=== PATIENT | female | born 1975 | race Hispanic/Latino ===

== ENCOUNTER 2017-11-08 09:19 | Day surgery (SDC) | payer SELFPAY ==
[~2017-11-08] VITALS: Ht 152.4 cm; Wt 76.4 kg
[~2017-11-08 09:19] MED LIST: FEOSOL325 MG PO; FOLIC ACID0.4 MG PO; LEVSIN-SL0.125 MG SL; PROVERA,CYCRIN10 MG PO; VITAMIN B-122500 MCG SL
[2017-11-08 10:20] VITALS: BP 141/82
[2017-11-08 11:02] VITALS: BP 187/78
[2017-11-08 16:30] VITALS: BP 123/74
[2017-11-08 21:17] VITALS: BP 142/85
[2017-11-09 00:56] VITALS: BP 122/71
[2017-11-09 04:54] VITALS: BP 129/72
[2017-11-09 07:06] LABS: BASOPHIL (%) 0.1 % (0-1); EOSINOPHIL (%) 0 % (0-5); HEMATOCRIT 41.1 % (36.0-46.0); HEMOGLOBIN 13.8 G/DL (11.9-15.5); IMMATURE GRANULOCYTE (%) 0.5 % (0.0-0.7); LYMPHOCYTE (%) 17.8 % (15-42); LYMPHOCYTE COUNT 2.6 K/uL (1.0-2.8); MCH 27.3 PG (29.0-34.0); MCHC 33.6 G/DL (30.0-36.0); MCV 81.2 FL (83-99); MONOCYTE (%) 6.4 % (3-12); MONOCYTE COUNT 0.9 K/uL (0-0.8); NEUTROPHIL (%) 75.2 % (45-76); NEUTROPHIL COUNT 10.8 K/uL (1.8-6.4); PLATELET COUNT 322 K/uL (156-360); RBC DIS.WIDTH-CV 14.1 % (11.8-14.6); RBC DIS.WIDTH-SD 41.6 % (39-53); RED BLOOD COUNT 5.06 M/uL (3.80-5.20); WHITE BLOOD COUNT 14.3 K/uL (4.1-10.2)
[2017-11-09 07:29] LABS: CHLORIDE 109 MEQ/L (99-109); CREATININE 0.6 MG/DL (0.6-1.3); GFR ESTIMATE (CALCULATED) > 59 mL/min/; GLUCOSE 103 mg/dL (70-99); POTASSIUM 3.9 MEQ/L (3.7-5.4); SODIUM 140 MEQ/L (136-147); UREA NITROGEN (BUN) 7 mg/dL (9-23)
[2017-11-09 07:36] VITALS: BP 124/73
[2017-11-09 11:05] VITALS: BP 138/78
== END 2017-11-09 12:36 | disposition home or self-care (01) ==
LOC: SDC 09:19 → 2SOUTH 14:32 → ENRESERV 14:33 → 2EASTP 16:26
PROVIDERS: Obstetrics & Gynecology Gynecology
PROC: 0UT94ZZ Resection of Uterus, Percutaneous Endoscopic Approach (ICD-10-PCS; principal; 2017-11-08)
PROC: 0UT74ZZ Resection of Bilateral Fallopian Tubes, Percutaneous Endoscopic Approach (ICD-10-PCS; principal; 2017-11-08)
PROC: 0TJB8ZZ Inspection of Bladder, Via Natural or Artificial Opening Endoscopic (ICD-10-PCS; principal; 2017-11-08)
PROC: 0UTC4ZZ Resection of Cervix, Percutaneous Endoscopic Approach (ICD-10-PCS; principal; 2017-11-08)
DX: D25.0 Submucous leiomyoma of uterus (principal); N92.1 Excessive and frequent menstruation with irregular cycle; N94.6 Dysmenorrhea, unspecified; N88.8 Other specified noninflammatory disorders of cervix uteri; N72 Inflammatory disease of cervix uteri; D64.9 Anemia, unspecified; E66.09 Other obesity due to excess calories; Z68.33 Body mass index [BMI] 33.0-33.9, adult; Z83.3 Family history of diabetes mellitus; Z88.0 Allergy status to penicillin
CPT/HCPCS: 80048; 85025; 87086; 88302; 88307; G0378; J0330; J0690; J1100; J1170; J1644; J1885; J2001; J2250; J2405; J2710; J3010; J3475; J7120; J7643